=== PATIENT | male | born 1990 | race Caucasian/White ===

== ENCOUNTER 2018-02-05 16:51 | Outpatient (CLI) | payer BC, SELFPAY ==
[2018-02-07 13:23] LABS: Chlamydia Result Negative; GC Result Negative; Specimen Description URINE
== END 2018-02-05 17:11 ==
PROVIDERS: PCP Nurse Practitioner Family; Visit Provider Urology
DX: R30.0 Dysuria (principal); Z11.3 Encounter for screening for infections with a predominantly sexual mode of transmission
CPT/HCPCS: 87491; 87591

== ENCOUNTER 2020-09-24 15:57 | Outpatient (REF) | payer BC, SELFPAY ==
[2020-09-24 19:17] LABS: Hemoglobin A1C 5.4 % (<5.7)
[2020-09-24 19:18] LABS: Anion Gap 8.5 mmol/L (3-11); BUN 16 mg/dL (7-18); CO2 27.5 mmol/L (21.0-32.0); CREATININE 1.4 mg/dL (0.70-1.30); Calcium 9.1 mg/dL (8.5-10.1); Chloride 106 mmol/L (98-107); Cholesterol 235 mg/dL (<200); Estimated GFR 59.11 (mL/min/1.73m2); Glucose 85 mg/dL (74-106); HDL Cholesterol 26 mg/dL (40-60); Potassium 4.1 mmol/L (3.5-5.1); Sodium 142 mmol/L (136-145); Triglyceride 589 mg/dL (<150)
[2020-09-24 20:02] LABS: LDL CHOLESTEROL 128 mg/dL (<100)
== END 2020-09-24 15:58 | disposition home or self-care (01) ==
LOC: NCHCN 15:57
PROVIDERS: PCP Nurse Practitioner Family; Visit Provider Nurse Practitioner Family
DX: Z00.00 Encounter for general adult medical examination without abnormal findings (principal); Z13.1 Encounter for screening for diabetes mellitus; Z13.220 Encounter for screening for lipoid disorders; Z13.228 Encounter for screening for other metabolic disorders; N52.9 Male erectile dysfunction, unspecified; Z31.41 Encounter for fertility testing
CPT/HCPCS: 80048; 80061; 83721; 83036

== ENCOUNTER 2022-04-06 18:12 | Outpatient (REF) | payer BC, SELFPAY ==
[2022-04-06 19:18] LABS: Cholesterol 244 mg/dL (<200); HDL Cholesterol 36 mg/dL (40-60); TSH (W/Ref FT4) 1.59 uIU/mL (0.36-3.74); Triglyceride 508 mg/dL (<150)
[2022-04-06 19:32] LABS: LDL CHOLESTEROL 122 mg/dL (<100)
== END 2022-04-06 18:13 | disposition home or self-care (01) ==
LOC: NCHCN 18:12
PROVIDERS: PCP Nurse Practitioner Family; Visit Provider Nurse Practitioner Family
DX: J06.9 Acute upper respiratory infection, unspecified (principal); F32.9 Major depressive disorder, single episode, unspecified; F41.9 Anxiety disorder, unspecified; Z13.220 Encounter for screening for lipoid disorders
CPT/HCPCS: 80061; 83721; 84443